=== PATIENT | male | born 1975 | race Caucasian/White ===

== ENCOUNTER 2023-04-02 11:57 | Observation (INO) | payer BC ==
--- OUTSIDE RECORDS SUMMARY | 2023-04-02 12:03 | XMS REPORT | Continuity of Care Document ---
:1975 Author Organization [facility] t Address [address] [place] [address] Care Team Providers Name Role Phone FAISAL ISABEL Attending Clinician Unavailable Payers Payer Name Policy Type Policy Number Effective Date Expiration Date [place] [facility] [id number] 2014 00:00:00 Problems This patient has no known problems. Allergies, Adverse Reactions, Alerts Allergy Allergy Status Severity Reaction(s) Onset Inactive Treating Comm ents Source Name Type Date Date Clinician No Known DA Active U 2015-05 [facility] Allergie 2- Clear s 00:00: Gonzalez 00 [facility] NO KNOWN Drug Active [facility] Medications This patient has no known medications. Procedures This patient has no known procedures. Encounters Start End Encounter Admission Attending Care Care Encounter Source Date/Time Date/Time Type Type Clinicians Facility Department ID 2020-04-12 2020-04-12 Outpatient FAISAL [facility] [id number] Q-20 [facility] 08:20:00 08:20:00 ISABEL [id number] [facility] 2020-04-12 2020-04-12 Outpatient R FAISAL [facility] [id number] [facility] 08:20:00 08:20:00 ISABEL [facility] Results Test Description Test Time Test Comments Results Result Comments Source D-DIMER 2019-03-18 00:24:00 Test Item Value Reference Range Interpretation Comme nts D-DIMER (test code = 238 ng/mlFEU <=500 N THROMBO SIS AND/OR PULMONARY EMBOLISM DDIMER) AND THE CLINICA L CUT- OFF VALUE FOR EXCLUSION (500 ng/mL FEU) OF THESE CONDITIONSIS VA LIDATED BY THE STONEWORKING BELT SANDER OF THE METHOD. A NEGATIVE D-DIMER RESULT WHEN COMBINED WITH A CLINICALASSESSM ENT OF LOW PRETEST PROBABILITY HAS BEEN SHOWN TO HAVEA HIGH NEGATIVE P REDICTIVE VALUE OF DVT OR PE. D-DIMER VALUES >500 ng/mL FEU ARE NOT DIAGNOS TIC FOR DVT, PEor DIC WITHOUT OTHER C ONFIRMATORY TESTS AND APPROPRIATECLIN ICAL EUALUATIONS. B-TYPE NATRIURETIC [id number] 00:12:00 Test Item Value Reference Range Interpretation Comments B-TYPE NATRIURETIC PEPTIDE (test 8.3 PG/ML 0-100 N code = BNP) BASIC METABOLIC [id number] 23:22:00 Test Item Value Reference Range Interpretation Comments SODIUM (test code = NA) 139 mEq/L 134-147 N POTASSIUM (test code = 4.2 mEq/L 3.4-5.0 N K) CHLORIDE (test code = 107 mEq/L 100-108 N CL) CARBON DIOXIDE (test 27 mEq/L 21-33 N code = CO2) ANION GAP (test code = 9 0-20 N GAP) GLUCOSE (test code = 94 mg/dL 70-110 N GLU) BLOOD UREA NITROGEN 20 mg/dL 7-18 H (test code = BUN) GLOMERULAR FILTRATION 66.1 95-105 L Units of measure = RATE (test code = GFR) ml/mi n/1.73 m2 CREATININE (test code = 1.2 mg/dL 0.6-1.3 N CREAT) CALCIUM (test code = 8.7 mg/dL 8.0-10.5 N CA) [id number] 23:22:00 Test Item Value Reference Range Interpretation Comments PHOSPHOROUS (test code = PHOS) 4.1 MG/DL 2.5-4.9 N [id number] 23:22:00 Test Item Value Reference Range Interpretation Comments MAGNESIUM (test code = MAG) 2.30 mg/dL 1.8-2.4 N [id number] 23:22:00 Test Item Value Reference Range Interpretation Comments TROPONIN-I < 0.015 ng/mL 0.000-0.045 N Negative: <= 0 .045 Positive: (test code = >= 0.046 Correl ation with TROPI) serial results, other cardiac markers andclinical findings is nec essary to determine the clinicalsignifi cance of this result. Results using different metho dologies should not be c omparedto one another as bebe titative results may crystal y by method. CBC W/AUTO [id number] 23:13:00 Test Item Value Reference Range Interpretation Comments WHITE BLOOD CELL (test code = 5.88 x10 3/uL 4.5-11.0 N WBC) RED BLOOD CELL (test code = 4.56 x10 6/uL 4.00-5.60 N RBC) HEMOGLOBIN (test code = HGB) 14.1 g/dL 12.5-16.9 N HEMATOCRIT (test code = HCT) 42.3 % 37.5-50.7 N MEAN CELL VOLUME (test code = 92.8 fL 81.0-99.0 N MCV) MEAN CELL HGB (test code = MCH) 30.9 pg 27.0-33.0 N MEAN CELL HGB CONCETRATION 33.3 g/dL 33.0-37.0 N (test code = MCHC) RED CELL DISTRIBUTION WIDTH CV 13.2 % 11.5-14.5 N (test code = RDW) RED CELL DISTRIBUTION WIDTH SD 45.2 fL 37.0-54.0 N (test code = RDW-SD) PLATELET COUNT (test code = 192 x10 3/uL 150-400 N PLT) MEAN PLATELET VOLUME (test code 10.1 fL 7.0-9.0 H = MPV) NEUTROPHIL % (test code = NT%) 46.4 % 56.0-77.0 L IMMATURE GRANULOCYTE % (test 0.2 % 0.0-2.0 N code = IG%) LYMPHOCYTE % (test code = LY%) 41.5 % 14.0-32.0 H MONOCYTE % (test code = MO%) 8.7 % 4.8-9.0 N EOSINOPHIL % (test code = EO%) 2.9 % 0.3-3.7 N BASOPHIL % (test code = BA%) 0.3 % 0.0-2.0 N NUCLEATED RBC % (test code = 0.0 % 0-0 N NRBC%) NEUTROPHIL # (test code = NT#) 2.73 x10 3/uL 2.0-7.6 N IMMATURE GRANULOCYTE # (test 0.01 x10 3/uL 0.00-0.03 N code = IG#) LYMPHOCYTE # (test code = LY#) 2.44 x10 3/uL 1.0-3.8 N MONOCYTE # (test code = MO#) 0.51 x10 3/uL 0.1-0.8 N EOSINOPHIL # (test code = EO#) 0.17 x10 3/uL 0.0-0.2 N BASOPHIL # (test code = BA#) 0.02 x10 3/uL 0.0-0.2 N NUCLEATED RBC # (test code = 0.00 x10 3/uL 0.0-0.1 N NRBC#) MANUAL DIFF REQUIRED (test code NO = MDIFF) - XR CHEST 1 [id number] 22:38:00 FAX: Luiz Fontanez DO [phone] [place]: St: PRE Name: [facility] [place] : 1975 Age/S: 43/M[address] [facility] Unit #: [id number] Loc: [address] [address] Phys: Luiz Puentes DO Acct:[id number] Dis Date: Status: PRE ER PHONE #: [phone] Exam Date: 03/17/20192236 FAX #: [phone] Reason: Chest Pain EXAMS: CPT CODE: [id number] XR CHEST 1 V [id number] Portable single view AP chest INDICATION: Chest pain. Erratic heart rate. Comparison: None. FINDINGS: The cardiomediastinal silhouette is normal in size. Lungs are clear. Costophrenic angles are sharp. No suspicious osseous abnormality is seen. IMPRESSION: No evidence for acute cardiopulmonary disease. SL: GRETCHEN at 2238 Reported and signed by: Brian Ashby M.D. CC: Luiz Puentes DO Technologist: RT Gregg(Ligia) Trnscrd Date/Time/By: 03/17/2019 ([id number]) : By: [email or web address] Orig Print D/T: S: 03/17/2019 (4762) PAGE 1 Signed Report
[2023-04-02 12:10] LABS: Absolute Lymphocytes (CBC) 2.5 K/uL (0.7-4.9); Hematocrit 45.4 % (39.6-49.0); Lymphocytes % 36.5 % (15.3-44.8); MCV 89.1 fL (80-100); MPV 7.9 fL (7.6-11.3); Platelets 223 thou/uL (152-406); RBC Red Blood Cell Count 5.09 M/uL (4.33-5.43)
[2023-04-02] MEDS ORDERED: METOPROLOL TARTRATE 5 MG/5 ML INJ IV ONE (12:20)
[2023-04-02 12:30] LABS: Potassium 4.2 mEq/L (3.5-5.1); Troponin High Sensitivity 4.9 pg/mL (<58.9)
--- NOTE | 2023-04-02 13:09 | EDPHYS ---
Physician Documentation [facility] Name: Clifford Dillard Age: 47 yrs Sex: Male : 1975 Arrival Date: 04/02/2023 Time: 11:57 Bed 8 Private MD: ED Physician Carlos Huerta HPI: 04/02 12:08 This 47 yrs old Male presents to ER via EMS with complaints of Palpitations. ms3 12:08 47-year-old male with no past medical history presents [facility] for shortness of ms3 breath and irregular heartbeat that began 1 hour prior to arrival. Patient denies pain. Patient denies any alleviating or inciting factors. Patient states he was bending over looking at pipe when his symptoms began. Historical: - Allergies: 12:00 No Known Allergies; mb9 - Home Meds: 12:00 None [Active]; mb9 - PMHx: 12:00 None; mb9 - PSHx: 12:00 None; mb9 - Immunization history:: Adult Immunizations up to date. - Social history:: Smoking status: Patient denies any tobacco usage or history of. ROS: 12:08 Constitutional: Negative for fever, and chills. Neck: Negative for injury, pain, and ms3 swelling, 12:08 Respiratory: Negative for shortness of breath, cough, wheezing, and pleuritic chest pain, Abdomen/GI: Negative for abdominal pain, nausea, vomiting, diarrhea, and constipation, MS/Extremity: Negative for injury and deformity, Skin: Negative for injury, rash, and discoloration, 12:08 Cardiovascular: Positive for palpitations, 12:08 All other systems are negative, Exam: 12:08 Constitutional: This is a well developed, well nourished patient who is awake, alert, ms3 and in no acute distress. Head/Face: Normocephalic, atraumatic. Neck: Trachea midline, no cervical lymphadenopathy. Supple, full range of motion without nuchal rigidity, or vertebral point tenderness. No Meningismus. Chest/axilla: Normal chest wall appearance and motion. Nontender with no deformity. 12:08 Cardiovascular: Rate: tachycardic, Rhythm: irregularly irregular, Pulses: no pulse deficits are appreciated, Heart sounds: normal, normal S1and S2, 12:08 ECG was reviewed by the Attending Physician. Vital Signs: 11:59 BP 125 / 106; Pulse 170; Resp 27; Pulse Ox 97% on R/A; Weight 111.13 kg; Height 6 ft. 1 tm6 in. ; Pain 0/10; 12:02 BP 125 / 106; Pulse 151; Resp 20; Pulse Ox 100% on R/A; tm6 12:05 BP 130 / 92; Pulse 130; tm6 12:05 BP 130 / 92; Pulse 130; tm6 12:10 BP 140 / 93; Pulse 125; tm6 12:10 BP 140 / 93; Pulse 125; tm6 12:15 BP 126 / 87; Pulse 108; tm6 12:15 BP 126 / 87; Pulse 108; tm6 12:29 BP 137 / 105; Pulse 114; tm6 12:36 BP 125 / 88; Pulse 96; Resp 16; Pulse Ox 97% on R/A; ld1 13:58 BP 113 / 91; Pulse 100; Pulse Ox 95% on R/A; tm6 11:59 Body Mass Index 32.32 (111.13 kg, 185.42 cm) tm6 11:59 Pain Scale: Adult tm6 MDM: 12:00 Patient medically screened. kb 12:08 Differential diagnosis: arrythmia, dehydration, [place]. ms3 13:09 Data reviewed: vital signs, nurses notes, and as a result, I will discharge patient. ms3 Management of patient was discussed with the following: Hospitalist: Dr Montgomery. I considered the following discharge prescriptions or medication management in the emergency department Medications were administered in the Emergency Department. See MAR. Independent interpretation of the following test(s) in the Emergency Department EKG: See my EKG interpretation above. Historians other than the Patient: EMS: [facility]. Counseling: I had a detailed discussion with the patient and/or guardian regarding the historical points, exam findings, and any diagnostic results supporting the discharge/admit diagnosis, lab results, radiology results, the need for further work-up and treatment in the hospital. ED course: . 04/02 12:01 Order name: Basic Metabolic Panel; Complete Time: 12:56 ld1 04/02 12:01 Order name: CBC with Diff; Complete Time: 12:56 ld1 04/02 12:01 Order name: Troponin HS; Complete Time: 12:56 ld1 11/13 13:10 Order name: TSH la1 04/02 13:10 Order name: Magnesium la1 04/02 12:01 Order name: XRAY Chest (1 view); Complete Time: 13:31 ld04/02 12:01 Order name: EKG; Complete Time: 12:02 ld04/02 12:01 Order name: Cardiac monitoring; Complete Time: 12:01 04/02 12:01 Order name: EKG - Nurse/Tech; Complete Time: 12:01 04/02 12:01 Order name: IV Saline Lock; Complete Time: 12:04/02 12:01 Order name: Labs collected and sent; Complete Time: 12:02 04/02 12:01 Order name: O2 Per Protocol; Complete Time: 12:02 04/02 12:01 Order name: O2 Sat Monitoring; Complete Time: 12:02 ld EC:08 Rate is 146 beats/min. Rhythm is irregularly irregular. QRS [place] is Normal. QRS ms3 interval is normal. Clinical impression: Atrial Fibrillation. Interpreted by me. Reviewed by me. Administered Medications: 12:03 Drug: Metoprolol IVP 5 mg IVP every 5 minutes; Hold for SBP < 100 or HR < 60. x3 {Note: tm6 BP 129/89.} Route: IVP; Site: right antecubital; 12:05 Follow up: BP 130 / 92; Pulse 130 bpm tm6 12:08 Drug: Metoprolol IVP 5 mg IVP every 5 minutes; Hold for SBP < 100 or HR < 60. x3 {Note: tm6 BP 130/92.} Route: IVP; Site: right antecubital; 12:10 Follow up: BP 140 / 93; Pulse 125 bpm tm6 12:13 Drug: Metoprolol IVP 5 mg IVP every 5 minutes; Hold for SBP < 100 or HR < 60. x3 {Note: tm6 BP 126/87.} Route: IVP; Site: right antecubital; 12:15 Follow up: BP 126 / 87; Pulse 108 bpm tm6 Disposition Summary: 04/02/23 13:09 Hospitalization Ordered Notes: Hospitalization Status: Inpatient Admission ms3 Provider: Buck Montgomery ms3 Location: Telemetry/MedSurg (Inpatient) ms3 Condition: Stable ms3 Problem: new ms3 Symptoms: are unchanged ms3 Bed/Room Type: Standard ms3 Room Assignment: 211(04/02/23 13:45) bd Diagnosis - Atrial Fibrillation with RVR ms3 - Shortness of breath ms3 Forms: - Medication Reconciliation Form ms3 - SBAR form ms3 - Leadership Thank You Letter ms3 Critical care time excluding procedures: 13:09 Critical care time: Bedside Care: 30 minutes, Consultation: 5 minutes. Total time: 35 ms3 minutes Signatures: Dispatcher [employer] EDWA Sindy Mcfadden, ENERGY SYSTEMS LABORATORY DIRECTOR-C ENERGY SYSTEMS LABORATORY DIRECTOR-Ckb Nargis Merlos Lee EN[employer]GY SYSTEMS LABORATORY DIRECTOR-C ENERGY SYSTEMS LABORATORY DIRECTOR-Cla1 Carlos Huerta, DO ms3 Barbara Huerta RN RN ld1 Cora Madera, RN RN mb9 Clarissa Gabriel RN RN tm6 Corrections: (The following items were deleted from the chart) 12:09 12:02 D-DIMER+COAG.LAB.BRZ ordered. EDWA EDWA 13:45 13:09 ms3 bd
--- NOTE | 2023-04-02 13:09 | ER ---
Nurse's Notes [facility] Name: Clifford Dillard Age: 47 yrs Sex: Male : 1975 Arrival Date: 04/02/2023 Time: 11:57 Bed 8 Private MD: Diagnosis: Atrial Fibrillation with RVR;Shortness of breath Presentation: 04/02 11:59 Chief complaint: EMS states: patient experienced heart palpitations at work. tm6 Coronavirus screen: Vaccine status: Patient reports receiving the 2nd dose of the covid vaccine. Client denies travel out of the [place] in the last 14 days. Ebola Screen: Patient negative for fever greater than or equal to 101.5 degrees Fahrenheit, and additional compatible Ebola Virus Disease symptoms Patient denies exposure to infectious person. Patient denies travel to an Ebola-affected area in the 21 days before illness onset. No symptoms or risks identified at this time. Initial Sepsis Screen: Does the patient meet any 2 criteria? HR > 90 bpm. No. Patient's initial sepsis screen is negative. Does the patient have a suspected source of infection? No. Patient's initial sepsis screen is negative. Risk Assessment: Do you want to hurt yourself or someone else? Patient reports no desire to harm self or others. Onset of symptoms was April 02, 2023. 11:59 [facility] 11:59 Acuity: SARANYA 3 tm6 Triage Assessment: 11:59 General: Appears in no apparent distress. Behavior is calm, cooperative. Pain: Denies tm6 pain. EENT: No signs and/or symptoms were reported regarding the EENT system. Neuro: Level of Consciousness is awake, alert, obeys commands, Oriented to person, place, time, situation. Cardiovascular: Capillary refill < 3 seconds Patient's skin is warm and dry. Rhythm is atrial fibrillation with rapid ventricular response. Respiratory: Airway is patent Respiratory effort is even, unlabored, Respiratory pattern is regular, symmetrical. 12:02 GI: Abdomen is round non-distended. : No signs and/or symptoms were reported tm6 regarding the genitourinary system. Derm: No signs and/or symptoms reported regarding the dermatologic system. Musculoskeletal: No signs and/or symptoms reported regarding the musculoskeletal system. Historical: - Allergies: 12:00 No Known Allergies; mb9 - Home Meds: 12:00 None [Active]; mb9 - PMHx: 12:00 None; mb9 - PSHx: 12:00 None; mb9 - Immunization history:: Adult Immunizations up to date. - Social history:: Smoking status: Patient denies any tobacco usage or history of. Screenin:01 [facility] ED Fall Risk Assessment (Adult) History of falling in the last 3 months, mb9 including since admission No falls in past 3 months (0 pts) Confusion or Disorientation No (0 pts) Intoxicated or Sedated No (0 pts) Impaired Gait No (0 pts) Mobility Assist Device Used No (0 pt) Altered Elimination No (0 pt) Score/Fall Risk Level 0 - 2 = Low Risk Oriented to surroundings, Maintained a safe environment, Educated pt \T\ family on fall prevention, incl call for assistance when getting out of bed. Abuse screen: Denies threats or abuse. Nutritional screening: No deficits noted. Tuberculosis screening: No symptoms or risk factors identified. Assessment: 12:02 Reassessment: ERP at bedside assessing patient. ld1 13:58 Reassessment: Patient appears in no apparent distress at this time. Patient and/or tm6 family updated on plan of care and expected duration. Pain level reassessed. Patient is alert, oriented x 3, equal unlabored respirations, skin warm/dry/pink. Vital Signs: 11:59 BP 125 / 106; Pulse 170; Resp 27; Pulse Ox 97% on R/A; Weight 111.13 kg; Height 6 ft. 1 tm6 in. ; Pain 0/10; 12:02 BP 125 / 106; Pulse 151; Resp 20; Pulse Ox 100% on R/A; tm6 12:05 BP 130 / 92; Pulse 130; tm6 12:05 BP 130 / 92; Pulse 130; tm6 12:10 BP 140 / 93; Pulse 125; tm6 12:10 BP 140 / 93; Pulse 125; tm6 12:15 BP 126 / 87; Pulse 108; tm6 12:15 BP 126 / 87; Pulse 108; tm6 12:29 BP 137 / 105; Pulse 114; tm6 12:36 BP 125 / 88; Pulse 96; Resp 16; Pulse Ox 97% on R/A; ld1 13:58 BP 113 / 91; Pulse 100; Pulse Ox 95% on R/A; tm6 11:59 Body Mass Index 32.32 (111.13 kg, 185.42 cm) tm6 11:59 Pain Scale: Adult tm6 Vitals: 12:29 Cardiac Rhythm Assessment Atrial fibrillation. tm6 ED Course: 11:58 Patient arrived in ED. tm6 11:59 Clarissa Gabriel, EVELYN is Primary Nurse. tm6 12:00 Sindy Mcfadden FNP-C [facility]. kb 12:00 Shivam Montgomery MD is Attending Physician. kb 12:00 Arm band placed on. mb9 12:00 EKG done, by ED staff, reviewed by Carlos Huerta DO. Maintain EMS IV. Dressing intact. mb9 Good blood return noted. Site clean \T\ dry. Gauge \T\ site: 20 g right AC. 12:01 Triage completed. tm6 12:01 Carlos Huerta DO is Attending Physician. kb 12:01 Placed in gown. Bed in low position. Call light in reach. Side rails up X 1. Client mb9 placed on continuous cardiac and pulse oximetry monitoring. NIBP monitoring applied. library monitor on. 12:02 EKG completed in triage. Results shown to MD. tm6 13:09 Buck Montgomery MD is Hospitalizing Provider. ms3 13:13 X-ray completed. Portable x-ray completed in exam room. Patient tolerated procedure mh1 well. 13:17 XRAY Chest (1 view) In Process Unspecified. EDMS 14:33 No provider procedures requiring assistance completed. Patient admitted, IV remains in tm6 place. 14:34 Provided Education on: on IV metoprolol. tm6 Administered Medications: 12:03 Drug: Metoprolol IVP 5 mg IVP every 5 minutes; Hold for SBP < 100 or HR < 60. x3 {Note: tm6 BP 129/89.} Route: IVP; Site: right antecubital; 12:05 Follow up: BP 130 / 92; Pulse 130 bpm tm6 12:08 Drug: Metoprolol IVP 5 mg IVP every 5 minutes; Hold for SBP < 100 or HR < 60. x3 {Note: tm6 BP 130/92.} Route: IVP; Site: right antecubital; 12:10 Follow up: BP 140 / 93; Pulse 125 bpm tm6 12:13 Drug: Metoprolol IVP 5 mg IVP every 5 minutes; Hold for SBP < 100 or HR < 60. x3 {Note: tm6 BP 126/87.} Route: IVP; Site: right antecubital; 12:15 Follow up: BP 126 / 87; Pulse 108 bpm tm6 Medication: 12:01 VIS not applicable for this client. mb9 Output: 13:34 Urine: 1000ml (Voided); Total: 1000ml. tm6 Outcome: 13:09 Decision to Hospitalize by Provider. ms3 14:33 Admitted to Tele accompanied by tech, via wheelchair, room 211, with chart, Report tm6 called to Juancarlos 14:33 Condition: improved 14:33 Instructed on the need for admit, 14:34 Patient left the ED. tm6 Signatures: Dispatcher [employer] EDMS Sindy Mcfadden, PATTERN PUNCHER-C PATTERN PUNCHER-Ckb Carlotta Paredes 1 Carlos Huerta, DO DO ms3 Barbara Huerta RN RN ld1 Cora Madera RN RN mb9 Clarissa Gabriel RN RN tm6
--- NOTE | 2023-04-02 13:21 | RAD REPORT ---
EXAM DESCRIPTION: RAD - Chest Single View - 04/02/2023 1:15 pm CLINICAL HISTORY: CHEST PAIN Chest pain. COMPARISON: No comparisons FINDINGS: Portable technique limits examination quality. The lungs are grossly clear. The heart is normal in size. No displaced fractures. IMPRESSION: No acute intrathoracic process suspected.
--- NOTE | 2023-04-02 13:40 | P.HP ---
Certification for Inpatient Patient admitted to: Observation With expected LOS: <2 Midnights Patient will require the following post-hospital care: None Practitioner: I am a practitioner with admitting privileges, knowledge of patient current condition, hospital course, and medical plan of care. Services: Services provided to patient in accordance with Admission requirements found in Title 42 Section 412.3 of the Code of Federal Regulations Patient History Date of Service: 04/02/23 Reason for admission: New onset A-fib RVR History of Present Illness: 47-year-old otherwise healthy male presents to the emergency department with chief complaint of palpitations that began while at work. Upon arrival to the emergency department patient was in A-fib RVR with a rate of 170. EKG showed atrial fibrillation with rapid ventricular response. His labs were unremarkable, he was treated with IV Lopressor 5 mg x 3 with moderate improvement. ED provider wishes to admit under observation for atrial fibrillation with rapid ventricular responsenew onset. Allergies No Known Allergies Allergy (Uncoded 01/04/17 17:09) Unknown - Past Medical/Surgical History -: None -: None Psychosocial/ Personal History: Lives at home with his family, works as a ahn at the [employer] - Family History Father -: Heart disease Notes: A-fib - Social History Smoking Status: Never smoker Alcohol use: Yes CD- Drugs: No Caffeine use: Yes Place of Residence: Home Review of Systems 10-point ROS is otherwise unremarkable Cardiovascular: Palpitations Physical Examination - Physical Exam General: Alert, In no apparent distress, Oriented x3 HEENT: Atraumatic, PERRLA, Mucous membr. moist/pink Neck: Supple Respiratory: Clear to auscultation bilaterally, Normal air movement Cardiovascular: No edema, Irregular heart rate/rhythm (A-fib rate 125) Gastrointestinal: Non-distended Integumentary: No rashes Neurological: Normal speech, Normal affect - Studies Laboratory Data (last 24 hrs) 04/02/23 04/02/23 12:04 12:04 WBC 6.90 Hgb 15.9 Hct 45.4 Plt Count 223 Sodium 136 Potassium 4.2 BUN 14 Creatinine 1.26 Glucose 133 H Assessment and Plan - Plan Assessment: New onset atrial fibrillation with rapid ventricular response Plan: New onset atrial fibrillation with rapid ventricular response Rate ~120s, QTC 479 still afib after three doses lopressor IV Cardiology consult, echo, tsh, mag Denies large amount of caffeine intake, recreational drugs No known sleep apnea or concern for per patient Father with hx of afib CHADSVASC score 0- will give daily 81mg ASA in hospital DVT PPX: Lovenox Code status:full Discharge Plan: Home Plan to discharge in: 24 Hours - Advance Directives Does patient have a Living Will: No Does patient have a Durable POA for Healthcare: No - Code Status/Comfort Care Code Status Assessed: Yes (Full code) Critical Care: No Time Spent Managing Pts Care (In Minutes): 55
[2023-04-02 14:02] LABS: Magnesium 2.3 mg/dL (1.6-2.4); Thyroid Stimulating Hormone 1.84 uIU/mL (0.358-3.740)
[2023-04-02] MEDS ORDERED: ONDANSETRON 4 MG/2 ML VIAL IV PRN (14:42)
[2023-04-02 14:56] VITALS: O2SAT 95
[2023-04-02 15:07] VITALS: BMI 31.6
[2023-04-02] MEDS ORDERED: DRONEDARONE 400 MG TAB PO ONE (15:45)
[2023-04-02] MEDS: SOTALOL HCL 80 MG TAB PO SCH (17:30)
[2023-04-02] MEDS: DRONEDARONE 400 MG PO SCH (21:00)
[2023-04-03 03:31] LABS: Absolute Lymphocytes (CBC) 2.9 K/uL (0.7-4.9); Lymphocytes % 38.2 % (15.3-44.8); MCV 89.2 fL (80-100); MPV 8.3 fL (7.6-11.3); Platelets 224 thou/uL (152-406); RBC Red Blood Cell Count 5.04 M/uL (4.33-5.43)
[2023-04-03 04:28] LABS: Troponin High Sensitivity 6.1 pg/mL (<58.9)
[2023-04-03 04:29] LABS: Magnesium 2.3 mg/dL (1.6-2.4); Potassium 4.3 mEq/L (3.5-5.1)
[2023-04-03] MEDS: SOTALOL HCL 80 MG TAB PO SCH ×2 (05:55→17:39)
[2023-04-03] MEDS: ASPIRIN EC 81 MG TAB PO SCH (08:22)
[2023-04-03] MEDS: ENOXAPARIN 40 MG/0.4 ML SQ SCH (08:22)
[2023-04-03] MEDS ORDERED: DRONEDARONE 400 MG TAB PO SCH (09:00)
[2023-04-03] MEDS: DRONEDARONE 400 MG PO SCH (09:00)
--- NOTE | 2023-04-03 14:39 | P.PN ---
Subjective Date of Service: 04/03/23 Chief Complaint: New onset A-fib RVR Patient denies any complain. History remain in A-fib but rate controlled. He denies any palpitation. Physical Examination - Vital Signs Temperature: 97.5 F Blood Pressure: 121/72 Pulse: 90 Respirations: 16 Pulse Ox (%): 98 Assessment And Plan - Plan Physical Exam General: Alert, In no apparent distress, Oriented x3 HEENT: Atraumatic, PERRLA, Mucous membr. moist/pink Neck: Supple, no elevated JVD. Respiratory: Clear to auscultation bilaterally, Normal air movement Cardiovascular: No edema, Irregular heart rate/rhythm (A-fib rate 125) Gastrointestinal: Non-distended Integumentary: No rashes Neurological: Normal speech, Normal affect, no focal motor deficit. Diagnosis New onset atrial fibrillation with rapid ventricular response Plan: New onset atrial fibrillation with rapid ventricular response QTC 479 status post IV Lopressor with no response. Patient given a dose of Multaq and then placed on sotalol. TSH within normal limits. Magnesium and potassium optimized. Keep potassium greater than 4 and magnesium greater than 2. Cardiology Dr. Christianson input appreciated. Continue sotalol hoping for spontaneous cardioversion. Electrical cardioversion if patient does not cardiovert by tomorrow per Dr. Christianson. Start full dose lovenox. DVT PPX: Lovenox Code status:full Discharge Plan: Home
[2023-04-04 05:50] VITALS: TEMP 97.6
[2023-04-04] MEDS: SOTALOL HCL 80 MG TAB PO SCH (05:57)
[2023-04-04 06:00] VITALS: BP 112/70
[2023-04-04] MEDS: ASPIRIN EC 81 MG TAB PO SCH (08:33)
[2023-04-04] MEDS: ENOXAPARIN 40 MG/0.4 ML SQ SCH ×2 (08:33→09:00)
--- NOTE | 2023-04-04 14:02 | P.DS ---
Admission Date: 04/02/23 Discharge Date: 04/04/23 Disposition: ROUTINE DISCHARGE Discharge Condition: FAIR Reason for Admission: New onset A-fib RVR - Problems (1) New onset atrial fibrillation Current Visit: Yes Status: Acute Brief History of Present Illness: 47-year-old otherwise healthy male presented to the emergency department with chief complaint of palpitations that began while at work. Upon arrival to the emergency department patient was in A-fib RVR with a rate of 170. EKG showed atrial fibrillation with rapid ventricular response. His labs were unremarkable, he was treated with IV Lopressor 5 mg x 3 with moderate improvement. Patient was admitted for further management. Hospital Course: Patient seen by cardiology Dr. Christianson He was given a dose of Multaq and then placed on sotalol. TSH within normal limits. Magnesium and potassium were optimized. Patient spontaneously cardioverted on sotalol. Serial EKG showed normal QTc. He was briefly on full dose Lovenox in anticipation for electrocardioversion. He did not require electrocardioversion His [id number] score is 0 and considered low risk so no long-term anticoagulation for now. Patient is informed to follow-up with Dr. Christianson within 1 week for reassessment. Vital Signs/Physical Exam: Temp Pulse Resp BP Pulse Ox 97.6 F 61 17 112/70 98 04/04/23 04:00 04/04/23 06:00 04/04/23 04:00 04/04/23 06:00 04/04/23 04:00 General: Alert, In no apparent distress, Oriented x3 HEENT: Mucous membr. moist/pink Neck: Supple, JVD not distended Respiratory: Clear to auscultation bilaterally, Normal air movement Cardiovascular: No edema, Regular rate/rhythm, Normal S1 S2 Gastrointestinal: Normal bowel sounds, Soft and benign, Non-distended, No tenderness Musculoskeletal: No swelling Integumentary: No rashes, No cyanosis Neurological: Normal strength at 5/5 x4 extr, Cranial nerves 3-12 intact Laboratory Data at Discharge: WBC 7.60 thou/uL (4.3-10.9) 04/03/23 01:45 Hgb 15.4 g/dL (13.6-17.9) 04/03/23 01:45 Hct 45.0 % (39.6-49.0) 04/03/23 01:45 Plt Count 224 thou/uL (152-406) 04/03/23 01:45 Sodium 138 mEq/L (136-145) 04/03/23 01:45 Potassium 4.3 mEq/L (3.5-5.1) 04/03/23 01:45 BUN 16 mg/dL (7-18) 04/03/23 01:45 Creatinine 1.20 mg/dL (0.70-1.30) 04/03/23 01:45 Glucose 126 mg/dL (74-106) H 04/03/23 01:45 Magnesium 2.3 mg/dL (1.6-2.4) 04/03/23 01:45 Triglycerides 214 mg/dL (<150) H 04/03/23 01:45 Cholesterol 190 mg/dL (<200) 04/03/23 01:45 HDL Cholesterol 49 mg/dL (40-60) 04/03/23 01:45 Cholesterol/HDL Ratio 3.88 04/03/23 01:45 Home Medications: Aspirin [Aspirin EC 81 MG] 81 mg PO DAILY #30 tab 04/04/23 Sotalol HCl [Betapace*] 80 mg PO BID 6AM 6PM #60 tab 04/04/23 New Medications: Aspirin [Aspirin EC 81 MG] 81 mg PO DAILY #30 tab Sotalol HCl [Betapace*] 80 mg PO BID 6AM 6PM #60 tab Diet: AHA Activity: Ad radha Followup: NONE,NONE [Primary Care Provider] - Perez Christianson MD [ACTIVE - CAN ADMIT] - 1 Week Time spent managing pt's care (in minutes): 27
--- NOTE | 2023-04-04 17:20 | EKG ---
Test Date: 2023-04-04 Test Time: 13:01:12 License Clerk: SIDNEY MEASUREMENT RESULTS: Intervals: Rate: 63 CA: 156 QRSD: 90 QT: 402 QTc: 411 [place]: P: 44 CA: 156 QRS: 21 T: 32 INTERPRETIVE STATEMENTS: Normal sinus rhythm Normal ECG Compared to ECG 04/03/2023 20:13:23 ST (T wave) deviation no longer present Electronically Signed On 04-04-23 17:19:41 INFORMATION ANALYST by Perez Christianson
--- NOTE | 2023-04-04 17:21 | EKG ---
Test Date: 2023-04-03 Test Time: 20:12:14 Garment Sewer Hand: JESU MEASUREMENT RESULTS: Intervals: Rate: 74 MS: 160 QRSD: 86 QT: 380 QTc: 421 [place]: P: 41 MS: 160 QRS: -4 T: 31 INTERPRETIVE STATEMENTS: Normal sinus rhythm Normal ECG Compared to ECG 04/02/2023 11:58:59 Atrial fibrillation no longer present Electronically Signed On 04-04-23 17:19:59 SERVICE PLUMBER by Perez Christianson
--- NOTE | 2023-04-04 17:29 | EKG ---
Test Date: 2023-04-02 Test Time: 11:58:59 Still Operator Brandy: MB MEASUREMENT RESULTS: Intervals: Rate: 146 NC: QRSD: 90 QT: 308 QTc: 479 [place]: P: NC: QRS: 42 T: 65 INTERPRETIVE STATEMENTS: Atrial fibrillation with rapid ventricular response Abnormal ECG No previous ECG available for comparison Electronically Signed On 04-04-23 17:23:22 FICTION AND NONFICTION AUTHOR by Perez Christianson
--- NOTE | 2023-04-05 07:35 | ECHO ---
HEIGHT: 6 ft 1 in WEIGHT: 240 lb 0 oz DATE OF STUDY: 04/04/[address]: Luiz Munoz MD 2-DIMENSIONAL: YES M.MODE: YES DOPPLER: YES COLOR FLOW: YES TDS: PORTABLE: YES DEFINITY: BUBBLE STUDY: DIAGNOSIS: NEW ONSET ATRIAL FIBRILLATION CARDIAC HISTORY: CATHERIZATION: SURGERY: PROSTHETIC VALVE: PACEMAKER: MEASUREMENTS (cm) DIASTOLIC (NORMALS) SYSTOLIC (NORMALS) IVSd 1.0 (0.6-1.2) LA Diam 3.8 (1.9-4.0) LVEF 55% LVIDd 4.8 (3.5-5.7) LVIDs 3.5 (2.0-3.5) %FS 28% LVPWd 1.1 (0.6-1.2) Ao Diam 2.9 (2.0-3.7) 2 DIMENSIONAL ASSESSMENT: RIGHT ATRIUM: NORMAL LEFT ATRIUM: NORMAL RIGHT VENTRICLE: NORMAL LEFT VENTRICLE: NORMAL TRICUSPID VALVE: MILD TRICUSPID REGURGITATION MITRAL VALVE: MILD MITRAL REGURGITATION PULMONIC VALVE: NORMAL AORTIC VALVE: NORMAL PERICARDIAL EFFUSION: NONE AORTIC ROOT: NORMAL LEFT VENTRICULAR WALL MOTION: NORMAL DOPPLER/COLOR FLOW: SEE BELOW COMMENTS: 1. NORMAL LEFT VENTRICULAR EJECTION FRACTION 55-60% WITH NORMAL WALL MOTION 2. NORMAL DIASTOLIC FUNCTION 3. MILD MITRAL REGURGITATION 4. MILD TRICUSPID REGURGITATION TECHNOLOGIST: BAILEE PALACIO
--- NOTE | 2023-04-05 10:45 | EKG ---
Test Date: 2023-04-03 Test Time: 20:13:23 Commercial Administrator: JESU MEASUREMENT RESULTS: Intervals: Rate: 70 [place]: 160 QRSD: 90 QT: 382 QTc: 412 [place]: P: 46 AK: 160 QRS: -3 T: 31 INTERPRETIVE STATEMENTS: Normal sinus rhythm Low voltage QRS Nonspecific ST abnormality Abnormal ECG Compared to ECG 04/03/2023 20:12:14 Low QRS voltage now present ST (T wave) deviation now present Electronically Signed On 04-05-23 10:42:32 CORROSION TECHNICIAN by Perez Christianson
== END 2023-04-04 14:38 | disposition home or self-care (01) ==
LOC: ER 11:57 → ERHOLD 13:29 → 2ND 14:17
PROVIDERS: ADMIT Hospitalist; ATTEND Internal Medicine
DX: I48.91 Unspecified atrial fibrillation (principal)
CPT/HCPCS: 93005 ×4; 93306; 85025 ×2; 80048 ×2; 36415; 83735 ×2; 80061; 84443; 84484 ×3; 71045; 96374; 99285; J1650; G0378 ×4